=== PATIENT | female | born 1955 | race Caucasian/White ===

== ENCOUNTER → 2017-02-24 | Outpatient (CLI) | payer OTHER ==
[2017-02-24 09:00] LABS: Basophils # (A) 0.1 k/uL (0-0.2); Basophils % (A) 1 %; CH 30.4; CHCM 32.6; Eosinophils # (A) 0.2 k/uL (0-0.7); Eosinophils % (A) 2 %; HCT 45.9 % (34.0-46.0); HDW 2.58; HGB 14.9 gm/dL (11.4-16.0); Luc # (Auto) 0.19; Luc % (Auto) 3; Lymphocytes # (A) 1.9 k/uL (1.0-4.8); Lymphocytes % (A) 25 %; MCH 30.3 pg (25.0-35.0); MCHC 32.5 g/dL (31.0-37.0); MCV 93.5 fL (80.0-100.0); Mean Platelet Volume 7.9; Monocytes # (A) 0.4 k/uL (0-1.0); Monocytes % (A) 6 %; Neutrophils # (A) 5.1 k/uL (1.3-7.7); Neutrophils % (A) 65 %; RBC 4.91 m/uL (3.80-5.40); WBC 7.9 k/uL (3.8-10.6)
[2017-02-24 09:07] LABS: ALT 33 U/L (9-52); AST 29 U/L (14-36); Alkaline Phosphatase 94 U/L (38-126); Anion Gap 11 mmol/L; Blood Urea Nitrogen 21 mg/dL (7-17); Calcium 9.4 mg/dL (8.4-10.2); Carbon Dioxide 28 mmol/L (22-30); Chloride 101 mmol/L (98-107); Cholesterol 223 mg/dL (<200); Glucose 100 mg/dL (74-99); HDL Cholesterol 63 mg/dL (40-60); Non-African American GFR(MDRD) >60 (>60 ml/min/1.73 sqM); Potassium 4.1 mmol/L (3.5-5.1); Sodium 140 mmol/L (137-145); Total Bilirubin 0.6 mg/dL (0.2-1.3)
== END | disposition home or self-care (01) ==
LOC: LABWHC1 08:20
PROVIDERS: ATTEND Nurse Practitioner
DX: Z00.00 Encounter for general adult medical examination without abnormal findings (principal); M81.0 Age-related osteoporosis without current pathological fracture; H81.10 Benign paroxysmal vertigo, unspecified ear; H53.8 Other visual disturbances; Z28.21 Immunization not carried out because of patient refusal; Z13.89 Encounter for screening for other disorder
CPT/HCPCS: 36415; 80053; 80061; 84439; 84443; 85025

== ENCOUNTER → 2017-05-20 | Outpatient (CLI) | payer OTHER ==
--- NOTE | 2017-05-20 11:22 | WWHP ---
[facility] - HISTORY AND PHYSICAL DATE OF SERVICE: 05/20/2017. CHIEF COMPLAINT: The patient is here for her routine gynecologic exam and mammogram. HPI: This is a 62-year-old, G2, P2, with an LMP of 2009. The patient does have occasional hot flashes. These are tolerable. She is otherwise without gynecologic complaints. She denies any postmenopausal bleeding. PAST MEDICAL HISTORY: Chronic back problems and history of osteoporosis. MEDICATIONS: None. ALLERGIES: COMPAZINE, BACTRIM, and SHELLFISH. PAST SURGICAL HISTORY: Colonoscopy in 2006 and 2016. Back surgery 2014. 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 SOCIAL HISTORY: She denies tobacco, alcohol, and drug use. She has been since 1973. The patient does not work outside her home. Her has advanced emphysema and other medical problems. FAMILY HISTORY: Father had some type of cancer but she is uncertain of the type. Brother and mother have hypertension and history of PR. REVIEW OF SYSTEMS: She has lost about 4 pounds over the last year. She denies respiratory, cardiac or GI problems. PHYSICAL EXAM: Blood pressure 128/78, height 5 feet 5 inches, weight 122 pounds, BMI 20, temperature 97.8, pulse 77. This is a well-developed, well-nourished, white female, who is alert and oriented x3, in no acute distress. HEENT is within normal limits. NECK: Supple without mass or thyromegaly. CHEST AND LUNGS: Clear to auscultation. HEART: Regular rate and rhythm. Breasts are without mass or discharge. Axillary exam is negative for adenopathy. Back negative for CVA tenderness. ABDOMEN: Soft, nontender, without palpable masses. PELVIC EXAM: External genitalia reveals mild to moderate atrophy without lesions. Cervix and vagina reveal [id number] atrophy without lesions. There is no evidence of prolapse. The uterus is mid-position, nongravid size and nontender. There are no palpable adnexal masses or tenderness. Rectovaginal exam is negative for mass or tenderness and is negative for occult blood. EXTREMITIES: Nontender. IMPRESSION: 1. A 62-year-old menopausal female with normal gynecologic exam. 2. History of osteoporosis. PLAN: 1. Pap smear was deferred since she had a normal one last year. 2. Self breast examination was discussed. 3. Mammogram will be done today. 4. Osteoporosis management was discussed. I have again recommended taking medication for her weaker bones. The patient states she did not use the medication as recommended by Dr. Luna because of financial reasons. She will be getting a different type of insurance this year and will be looking into using the medication. I have recommended that she follow up with Dr. Luna's office for medical treatment of her osteoporosis since he has done her bone density testing. We have also discussed the importance of adequate calcium, vitamin D and regular exercise. A handout was given to the patient on this. We have also discussed ways of reducing the risk of falling. 5. She will return in 1 year. MMODL / IJN: [id number] /
--- NOTE | 2017-05-22 10:43 | MM ---
Reason for exam: screening (asymptomatic). Last mammogram was performed 1 year ago. History: Patient is postmenopausal. Benign excisional biopsy of the left breast. 2 benign excisional biopsies of the right breast. Physical Findings: A clinical breast exam by your physician is recommended on an annual basis and results should be correlated with mammographic findings. MG Screening Mammo w CAD Bilateral CC and MLO view(s) were taken. Prior study comparison: May 15, 2016, bilateral MG screening mammo w CAD. April 14, 2014, mammogram, performed at [facility]. The breast tissue is heterogeneously dense. This may lower the sensitivity of mammography. Surgical clips in the left breast. No significant changes when compared with prior studies. ASSESSMENT: Benign, BI-RAD 2 RECOMMENDATION: Routine screening mammogram of both breasts in 1 year.
== END | disposition home or self-care (01) ==
LOC: WWCWWP 09:43
PROVIDERS: ATTEND Obstetrics & Gynecology
DX: Z12.31 Encounter for screening mammogram for malignant neoplasm of breast (principal)

== ENCOUNTER → 2017-06-23 | Outpatient (CLI) | payer BC ==
--- NOTE | 2017-06-23 15:49 | XR ---
EXAMINATION TYPE: XR chest 2V DATE OF EXAM: 06/23/2017 COMPARISON: 03/12/2015. HISTORY: COPD. Productive cough for 5 days. TECHNIQUE: Frontal and lateral views of the chest are obtained. FINDINGS: There is no focal air space opacity, pleural effusion, or pneumothorax seen. The cardiac silhouette size is within normal limits. The osseous structures are intact. Pulmonary hyperinflatio n relates to the patient's known underlying COPD. IMPRESSION: No acute cardiopulmonary process. Radiographic sequela of COPD.
== END | disposition home or self-care (01) ==
LOC: RADXRMAIN 15:19
PROVIDERS: ATTEND Family Medicine
DX: J44.9 Chronic obstructive pulmonary disease, unspecified (principal)
CPT/HCPCS: 71046

== ENCOUNTER → 2018-07-07 | Outpatient (CLI) | payer BC ==
--- NOTE | 2018-07-07 10:46 | EST ---
EXERCISE STRESS AGE: 63 SEX: F HT: 5'5" WT: 126 PROTOCOL: Abnormal EKG, chest pain. STAGE: II DURATION OF EXERCISE: 7:00 HEART RATE REST: 101 BLOOD PRESSURE REST: 154/94 MAXIMUM HEART RATE ACHIEVED: 165 MAXIMUM BLOOD PRESSURE: 195/79 85% MPHR: 133 100% MPHR: 157 METS: 8.5 INDICATIONS: Abnormal EKG, chest pain. CLINICAL INFORMATION: Baseline EKG shows sinus rhythm, normal axis, normal intervals. Patient exercised on Mario protocol for a total of 7 minutes achieving 8 METS, 105% predicted maximal heart rate without chest pain. She complained of shortness of breath. At peak exercise there was [address]-segment depression noted. CONCLUSION: 1. Above-average exercise tolerance. 2. Abnormal stress test by EKG criteria.. MMODL / IJN: [id number] /
== END | disposition home or self-care (01) ==
LOC: RADNMMAIN 08:49
PROVIDERS: ATTEND Family Medicine
DX: R94.31 Abnormal electrocardiogram [ECG] [EKG] (principal)
CPT/HCPCS: 93017

== ENCOUNTER → 2019-03-04 | Outpatient (CLI) | payer BC ==
[2019-03-04 11:49] LABS: Chol/HDL Ratio 3.58; LDL Cholesterol,Calculated 136.2 mg/dL (0.0-131.0); VLDL Calculation 15.8 mg/dL (5.00-40.00)
[2019-03-04 11:57] LABS: T4, Free (Free Thyroxine) 1.1 ng/dL (0.80-1.80)
== END | disposition home or self-care (01) ==
LOC: LABWHC1 07:40
PROVIDERS: ATTEND Nurse Practitioner
DX: Z00.00 Encounter for general adult medical examination without abnormal findings (principal); M81.0 Age-related osteoporosis without current pathological fracture; Z68.20 Body mass index [BMI] 20.0-20.9, adult
CPT/HCPCS: 36415; 80061; 82306; 84439; 84443

== ENCOUNTER → 2019-03-09 | Outpatient (CLI) | payer BC ==
--- NOTE | 2019-03-09 16:40 | BD ---
EXAMINATION TYPE: Axial Bone Density DATE OF EXAM: 03/09/2019 COMPARISON: NONE CLINICAL HISTORY: Height: 5 FT 4 IN Weight: FRAX RISK QUESTIONS: RISK FACTORS HISTORY OF: Surgery to Spine/Hip(right/left)/Wrist (right/left): LUMBAR SURG When: 2014 Family History of Osteoporosis: YES Active: YES Postmenopausal woman: AGE 55 Lost more than 2 inches in height since high school: YES MEDICATIONS: Additional Medications: VIT D Additional History: EXAM MEASUREMENTS: Bone mineral densitometry was performed using the [employer] System. Bone mineral density about the R hip (g/cm2): 0.747 Bone mineral density about the L hip (g/cm2): 0.718 T Score values are as follows: -----R Neck: -2.1 -----L Neck: -2.3 -----R Total: -2.2 -----L Total: -2.3 Bone mineral density has: DECREASED -2.6 % since study of: 2012 Bone mineral density about the L Wrist (g/cm2): 0.467 T Score values are as follows: -----Dist. R+U: -4.1 -----Prox. R+U: -3.0 -----Radius total: -3.4 BASELINE FOR WRIST IMPRESSION: Osteoporosis (T Score less than -2.5). There is increased fracture risk and therapy is usually indicated based on age. Re-Screen 1-2 years. NOTE: T-SCORE=SD OF THE YOUNG ADULT MEAN.
--- NOTE | 2019-03-10 14:14 | MM ---
Reason for exam: screening (asymptomatic). Last mammogram was performed 1 year and 10 months ago. History: Patient is postmenopausal. Benign excisional biopsy of the left breast. 2 benign excisional biopsies of the right breast. Physical Findings: A clinical breast exam by your physician is recommended on an annual basis and results should be correlated with mammographic findings. MG 3D Screening Mammo W/Cad Bilateral CC and MLO view(s) were taken. Prior study comparison: May 20, 2017, bilateral MG screening mammo w CAD. May 15, 2016, bilateral MG screening mammo w CAD. The breast tissue is heterogeneously dense. This may lower the sensitivity of mammography. Benign appearing calcifications in the right breast. No suspicious abnormality. Post surgical change on the left. No significant changes when compared with prior studies. ASSESSMENT: Benign, BI-RAD 2 RECOMMENDATION: Routine screening mammogram of both breasts in 1 year.
== END | disposition home or self-care (01) ==
LOC: RADMAMWWP 08:04
PROVIDERS: ATTEND Family Medicine
DX: Z12.31 Encounter for screening mammogram for malignant neoplasm of breast (principal); M81.0 Age-related osteoporosis without current pathological fracture; N95.1 Menopausal and female climacteric states
CPT/HCPCS: 77063; 77067; 77080

== ENCOUNTER → 2019-05-03 | Outpatient (CLI) | payer BC ==
[2019-05-03 12:57] VITALS: BP 151/87; PULSE 83; RESP 18; TEMP 98.5
--- NOTE | 2019-05-03 13:38 | P.HPOB ---
History of Present Illness H&P Date: 05/03/19 Chief Complaint: The patient is here for her routine gynecologic exam. This is a 64-year-old with an LMP of 2009. The patient is without gynecologic complaints and denies any postmenopausal bleeding. Review of Systems The patient's weight has been stable over the last year. She denies respiratory, cardiac, or G.I. problems. Past Medical History Additional Past Medical History / Comment(s): Chronic back problems and osteoporosis. neuropathy, LOWER EXTREMITY RADICULOPATHY,RECURRENT HERNATION L5- S1, DDD. 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 History of Any Multi-Drug Resistant Organisms: None Reported Additional Past Surgical History / Comment(s): back surg. x 2(LAMENECTOMY/DISCETOMY L5-S1), breast biopsies, 03-14-15 REVISON LAMINECTOMY AND DECOMPRESSION OF L5-S1. Colonoscopy 2017. Past Psychological History: No Psychological Hx Reported Smoking Status: Never smoker Past Alcohol Use History: None Reported Past Drug Use History: None Reported Additional History: The patient has been since 1973 and is not sexually active. Her has severe emphysema and is in hospice care. - Past Family History Mother Family Medical History: Hypertension, Myocardial Infarction ([place]) Brother(s) Family Medical History: Hypertension, Myocardial Infarction ([place]) Medications and Allergies Home Medications Medication Instructions Recorded Confirmed Type Gabapentin [Neurontin] 100 mg PO HS 03/07/15 05/03/19 History Allergies Allergy/AdvReac Type Severity Reaction Status Date / Time Iodinated Contrast Media Allergy Rash/Hives Verified 05/03/19 12:51 [Iodinated Contrast Media - IV Dye] prochlorperazine edisylate Allergy stroke Verified 05/03/19 12:51 [From Compazine] like symptoms prochlorperazine maleate Allergy stroke Verified 05/03/19 12:51 [From Compazine] like symptoms shellfish derived [Shellfish] Allergy Rash/Hives Verified 05/03/19 12:51 sulfamethoxazole Allergy Rash/Hives Verified 05/03/19 12:51 [From Bactrim] trimethoprim [From Bactrim] Allergy Rash/Hives Verified 05/03/19 12:51 ciprofloxacin [From Cipro] AdvReac Nausea & Verified 05/03/19 12:51 Vomiting ciprofloxacin HCl AdvReac Nausea & Verified 05/03/19 12:51 [From Cipro] Vomiting diphenhydramine HCl AdvReac Rapid Verified 05/03/19 12:51 [From Benadryl] Heart Rate Exam Vital Signs Temp Pulse Resp BP Pulse Ox 05/03/19 12:53 98.5 F 83 18 151/87 98 Intake and Output 05/02/19 05/03/19 05/03/19 22:59 06:59 14:59 Other: Weight 55.792 kg Height 5 feet 5 inches, weight 123 pounds, BMI 20.5. This is a well-developed well-nourished white female who is alert and oriented times 3 in no acute distress. HEENT: Within normal limits. NECK: Supple without mass or thyromegaly. CHEST AND LUNGS: Clear to auscultation. HEART: Regular rate and rhythm. BREASTS: Are without mass or discharge. AXILLARY EXAM: Negative for adenopathy. BACK: Negative for CVA tenderness. ABDOMEN: Soft, nontender, without palpable masses. PELVIC EXAM: Normal external genitalia with mild to moderate atrophy. Cervix and vagina appear normal with mild atrophy. There is no unusual discharge. There is no evidence of prolapse. The uterus is midposition, nongravid size and nontender. There are no palpable adnexal masses or tenderness. RECTAL EXAM: Rectovaginal exam is negative for mass or tenderness and is negative for occult blood. EXTREMITIES: Nontender. IMPRESSION: 1. 64-year-old menopausal female with normal gynecologic exam. 2. History of osteoporosis 3. Elevated blood pressure. PLAN: 1. Pap smear was performed. 2. Self breast awareness was discussed with the patient. 3. Screening mammogram was done on 03/10/2019 and was benign. 4. Osteoporosis management was discussed. I have stressed the importance of adequate calcium, vitamin D and regular exercise. Recommended amounts of calcium and vitamin D were also discussed. Bone density testing was done on 03/09/2019 and showed osteoporosis. She states her primary care physician, Dr. Luna, is planning on starting her on an injectable medication and she believes it was Prolia. She will be speaking with her office regarding this medication. 5. I recommended that she check her own blood pressures at home and follow-up with Dr. Luna regarding blood pressure elevations. 6. She was advised to return in one year for her annual well woman exam.
--- NOTE | 2019-05-11 14:45 | P.PN ---
Progress Note - Text Progress Note Date: 05/11/19 OUTPATIENT FOLLOW-UP NOTE TEST(S)/RESULTS: Pap smear from 05/03/2019 was negative. METHOD OF NOTIFICATION: The patient was notified by phone. PATIENT COMMENTS: DIAGNOSIS: Negative Pap smear DISCUSSION: PLAN: She was advised to return in one year for her annual well woman exam.
== END | disposition home or self-care (01) ==
LOC: WWCWWP 12:34
PROVIDERS: ATTEND Obstetrics & Gynecology
DX: Z53.9 Procedure and treatment not carried out, unspecified reason (principal)

== ENCOUNTER → 2020-06-13 | Outpatient (CLI) | payer MEDICARE ==
--- NOTE | 2020-06-15 12:22 | MM ---
Reason for exam: screening (asymptomatic). Last mammogram was performed 1 year and 3 months ago. History: Patient is postmenopausal. Benign excisional biopsy of the left breast. 2 benign excisional biopsies of the right breast. Took hormonal contraceptives for 2 years. Physical Findings: A clinical breast exam by your physician is recommended on an annual basis and results should be correlated with mammographic findings. MG 3D Screening Mammo W/Cad Bilateral CC and MLO view(s) were taken. Prior study comparison: March 09, 2019, bilateral MG 3d screening mammo w/cad. May 20, 2017, bilateral MG screening mammo w CAD. The breast tissue is heterogeneously dense. This may lower the sensitivity of mammography. Surgical clips left breast. 1cm nodule central left CC view. Further evaluation recommended. ASSESSMENT: Incomplete: need additional imaging evaluation, BI-RAD 0 RECOMMENDATION: Special view mammogram and ultrasound of the left breast. [facility] will attempt to contact patient to return for supplemental views and ultrasound.
== END | disposition home or self-care (01) ==
LOC: RADMAMWWP 12:47
PROVIDERS: ATTEND Family Medicine
DX: Z12.31 Encounter for screening mammogram for malignant neoplasm of breast (principal)
CPT/HCPCS: 77063; 77067

== ENCOUNTER → 2020-06-26 | Outpatient (CLI) | payer MEDICARE ==
--- NOTE | 2020-06-26 14:14 | MM ---
Reason for exam: additional evaluation requested from abnormal screening. Last mammogram was performed less than 1 month ago. History: Patient is postmenopausal. Benign excisional biopsy of the left breast. 2 benign excisional biopsies of the right breast. Took hormonal contraceptives for 2 years. Physical Findings: Nurse Summary: 1.5cm nodule in the left breast at 12 o'clock (nurse TM). MG 3D Work Up W/Cad LT ML and CCRL view(s) were taken of the left breast. Prior study comparison: June 13, 2020, bilateral MG 3d screening mammo w/cad. March 09, 2019, bilateral MG 3d screening mammo w/cad. The breast tissue is heterogeneously dense. This may lower the sensitivity of mammography. Nodule 1.3cm 12 o'clock 4cm from nipple. These results were verbally communicated with the patient and result sheet given to the patient on 06/26/20. ASSESSMENT: Incomplete: need additional imaging evaluation, BI-RAD 0 RECOMMENDATION: Ultrasound of the left breast. Manage patient on a clinical basis.
--- NOTE | 2020-06-26 14:15 | USB ---
Reason for exam: additional evaluation requested from abnormal screening. History: Patient is postmenopausal. Benign excisional biopsy of the left breast. 2 benign excisional biopsies of the right breast. Took hormonal contraceptives for 2 years. US Breast Workup Limited LT Left limited breast ultrasound including focal area of concern, retroareolar and axilla demonstrates a 13 x 4 x 6mm lobular, mixed lesion at 12 o'clock BB. Probable cyst. These results were verbally communicated with the patient and result sheet given to the patient on 06/26/20. ASSESSMENT: Probably benign, BI-RAD 3 RECOMMENDATION: Ultrasound of the left breast in 6 months.
== END | disposition home or self-care (01) ==
LOC: RADMAMWWP 12:53
PROVIDERS: ATTEND Family Medicine
DX: R92.8 Other abnormal and inconclusive findings on diagnostic imaging of breast (principal)
CPT/HCPCS: 77065; 76642; G0279; 77061

== ENCOUNTER → 2020-12-25 | Outpatient (CLI) | payer MEDICARE ==
--- NOTE | 2020-12-25 08:52 | USB ---
Reason for exam: follow-up at short interval from prior study. History: Patient is postmenopausal. Benign excisional biopsy of the left breast. 2 benign excisional biopsies of the right breast. Took hormonal contraceptives for 2 years. Physical Findings: Nurse did not find any significant physical abnormalities on exam. US Breast Limited LT Left limited breast ultrasound including focal area of concern, retroareolar and axilla demonstrates a 1.2 x 0.4 x 0.6cm lobular, cystic lesion at 12 o'clock BB, similar in appearance. Palpated by nurse. Stable and benign. Likely mammographic correlate. Scanned 12 o'clock targeted. These results were verbally communicated with the patient and result sheet given to the patient on 12/25/20. ASSESSMENT: Probably benign, BI-RAD 3 RECOMMENDATION: Follow-up diagnostic mammogram of both breasts in 6 months. Back on schedule.
== END | disposition home or self-care (01) ==
LOC: RADUSWWP 07:42
PROVIDERS: ATTEND Family Medicine
DX: N60.02 Solitary cyst of left breast (principal); Z78.0 Asymptomatic menopausal state

== ENCOUNTER → 2021-02-05 | Outpatient (CLI) | payer MEDICARE ==
--- NOTE | 2021-02-05 15:31 | CT ---
EXAMINATION TYPE: CT brain wo con DATE OF EXAM: 02/05/2021 COMPARISON: None HISTORY: 66-year-old female S09.90XA headache post head injury TECHNIQUE: Examination was done in axial plane without intravenous contrast. Coronal and sagittal r econstructions performed. CT DLP: 1100 mGycm Automated exposure control for dose reduction was used. FINDINGS: There is no evidence of acute intracranial hemorrhage, acute ischemic changes, mass, mass-effect, or extra-axial fluid collection. There is no effacement of cerebral sulci or basal subarachnoid cister ns. There is no hydrocephalus. There is no midline shift. Coates-white matter distinction is preserv ed. Leftward nasal septal deviation with right-sided yandel bullosa. Paranasal sinuses and mastoid air ce lls well pneumatized. Orbits and globes are intact. No calvarial fracture. IMPRESSION: No acute intracranial abnormality seen.
== END | disposition home or self-care (01) ==
LOC: RADCTMAIN 15:04
PROVIDERS: ATTEND Family Medicine
DX: S09.90XA Unspecified injury of head, initial encounter (principal); G44.309 Post-traumatic headache, unspecified, not intractable
CPT/HCPCS: 70450

== ENCOUNTER → 2021-04-10 | Outpatient (CLI) | payer MEDICARE ==
[2021-04-10 10:43] VITALS: BP 119/81; PULSE 86; RESP 18; TEMP 98.4
--- NOTE | 2021-04-10 11:41 | P.HPOB ---
History of Present Illness H&P Date: 04/10/21 Chief Complaint: The patient is here for her routine gynecologic exam. This is a 66-year-old with an LMP of 2009. The patient is without gynecologic complaints and denies any postmenopausal bleeding. The patient has a history of osteoporosis and used Fosamax for less than one year but this caused bad gastric reflux she used Prolia last year, but this caused jaw pain so she discontinued it. Review of Systems The patient's weight has been stable over the last year. She denies respiratory, cardiac, or G.I. problems. Past Medical History Additional Past Medical History / Comment(s): Chronic back problems and osteoporosis. neuropathy, LOWER EXTREMITY RADICULOPATHY,RECURRENT HERNATION L5- S1, DDD. 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 History of Any Multi-Drug Resistant Organisms: None Reported Additional Past Surgical History / Comment(s): back surg. x 2(LAMENECTOMY/DISCETOMY L5-S1), breast biopsies, 03-14-15 REVISON LAMINECTOMY AN D DECOMPRESSION OF L5-S1. Colonoscopy 2017. Past Psychological History: No Psychological Hx Reported Smoking Status: Never smoker Past Alcohol Use History: None Reported Past Drug Use History: None Reported Additional History: The patient has been a since 2019 and is not sexually active. - Past Family History Mother Family Medical History: Hypertension, Myocardial Infarction ([place]) Brother(s) Family Medical History: Hypertension, Myocardial Infarction ([place]) Medications and Allergies Home Medications Medication Instructions Recorded Confirmed Type Bone Strength 1 tab PO HS 04/10/21 04/10/21 History Allergies Allergy/AdvReac Type Severity Reaction Status Date / Time Iodinated Contrast Media Allergy Rash/Hives Verified 04/10/21 10:37 [Iodinated Contrast Media - IV Dye] prochlorperazine edisylate Allergy stroke Verified 04/10/21 10:37 [From Compazine] like symptoms prochlorperazine maleate Allergy stroke Verified 04/10/21 10:37 [From Compazine] like symptoms shellfish derived [Shellfish] Allergy Rash/Hives Verified 04/10/21 10:37 sulfamethoxazole Allergy Rash/Hives Verified 04/10/21 10:37 [From Bactrim] trimethoprim [From Bactrim] Allergy Rash/Hives Verified 04/10/21 10:37 ciprofloxacin [From Cipro] AdvReac Nausea & Verified 04/10/21 10:37 Vomiting ciprofloxacin HCl AdvReac Nausea & Verified 04/10/21 10:37 [From Cipro] Vomiting diphenhydramine HCl AdvReac Rapid Verified 04/10/21 10:37 [From Benadryl] Heart Rate Exam Vital Signs Temp Pulse Resp BP Pulse Ox 04/10/21 10:38 98.4 F 86 18 119/81 98 Intake and Output 04/09/21 04/10/21 04/10/21 22:59 06:59 14:59 Other: Weight 56.245 kg Height 5 feet 4-1/2 inches, weight 124 pounds, BMI 21.0. This is a well-developed well-nourished white female who is alert and oriented times 3 in no acute distress. HEENT: Within normal limits. NECK: Supple without mass or thyromegaly. CHEST AND LUNGS: Clear to auscultation. HEART: Regular rate and rhythm. BREASTS: Are without mass or discharge. There is slight right central nipple inversion which is unchanged for many years per the patient. AXILLARY EXAM: Negative for adenopathy. BACK: Negative for CVA tenderness. ABDOMEN: Soft, nontender, without palpable masses. PELVIC EXAM: Normal external genitalia with mild atrophy. Cervix and vagina appear normal with mild atrophy. There is no unusual discharge. There is no evidence of prolapse. The uterus is midposition, nongravid size and nontender. There are no palpable adnexal masses or tenderness. RECTAL EXAM: Rectovaginal exam is negative for mass or tenderness and is negative for occult blood. EXTREMITIES: Nontender. IMPRESSION: 1. 66-year-old menopausal female with normal gynecologic exam. 2. History of osteoporosis status post brief use of Fosamax and Prolia, both were discontinued due to side effects. PLAN: 1. Pap smear was performed. If this one is negative, we will plan on discontinuing Pap smears. She has no history of cervical neoplasia. 2. Self breast awareness was discussed with the patient. We have also discussed symptoms associated with inflammatory breast cancer. 3. Diagnostic mammogram will be due in early June 2021. The order slip was given to the patient for this. 4. Osteoporosis management was discussed. I have stressed the importance of adequate calcium, vitamin D and regular exercise. Recommended amounts of calcium and vitamin D were also discussed. Bone density testing is recommended and the order slip was given to the patient for this. We have discussed different options for medical treatment for osteoporosis, such as IV Reclast, calcitonin, and Tymlos injections. She is wary of using medication for the osteoporosis because she had side effects from 2 different types of medications. We'll plan on repeating bone density testing and we will we discussed the options of medications. The order slip was given to the patient for this. 5. She has not received Covid vaccination. She states she has had Covid already. We have discussed that she may benefit from still getting the vaccination and she understands the CDC does recommend being vaccinated even after having had Covid. She will consider this. 6. The patient was advised to return in 1-2 years for her well woman examination.
== END ==
LOC: WWCWWP 10:28
PROVIDERS: ATTEND Obstetrics & Gynecology
DX: Z01.419 Encounter for gynecological examination (general) (routine) without abnormal findings (principal); M81.0 Age-related osteoporosis without current pathological fracture; Z88.1 Allergy status to other antibiotic agents; Z88.2 Allergy status to sulfonamides; Z88.8 Allergy status to other drugs, medicaments and biological substances; Z91.013 Allergy to seafood; Z91.041 Radiographic dye allergy status

== ENCOUNTER → 2021-05-06 | Outpatient (CLI) | payer MEDICARE ==
--- NOTE | 2021-05-07 19:21 | BD ---
EXAMINATION TYPE: Axial Bone Density DATE OF EXAM: 05/06/2021 COMPARISON: 2019 CLINICAL HISTORY: Postmenopausal screening Height: 5 FT 4 IN Weight: 124 FRAX RISK QUESTIONS: Alcohol (3 or more units per day): NO Family History (Parent hip fracture): NO Glucocorticoids (More than 3mos): NO (Ex: prednisone, prednisolone, methylprednisolone, dexamethasone, and hydrocortisone). History of Fracture in Adulthood: NO Secondary Osteoporosis: 1. Type 1 Diabetes: NO 2. Hyperthyroidism: NO 3. Menopause before 45: NO 4. Malnutrition: NO 5. Chronic liver disease: NO Rheumatoid Arthritis: NO Current Tobacco Use: NO RISK FACTORS HISTORY OF: Surgery to Spine/Hip(right/left)/Wrist (right/left): LUMBAR SURG When: 2014 Family History of Osteoporosis: YES Active: YES Diet low in dairy products/other sources of calcium: NO Postmenopausal woman: YES Take estrogen and/or progesterone medications: NO Lost more than 2 inches in height since high school: YES Frequent falls: NO Poor Health: GOOD Hyperparathyroidism: NO Adrenal Insufficiency: NO MEDICATIONS: Additional Medications: NONE Additional History: EXAM MEASUREMENTS: Bone mineral density about the R hip (g/cm2): 0.724 Bone mineral density about the L hip (g/cm2): 0.719 T Score values are as follows: -----R Neck: -2.3 -----L Neck: -2.3 -----R Total: -2.3 -----L Total: -2.2 Bone mineral density has: INCREASED 0.1 % since study of: 2018 Bone mineral density about the L Wrist (g/cm2): 0.469 T Score values are as follows: -----Dist. R+U: -3.9 -----Prox. R+U: -3.2 -----Radius total: -3.4 Bone mineral density has: DECREASED -3.4 % since study of: 2019 IMPRESSION: Osteoporosis (T Score less than -2.5). There is increased fracture risk and therapy is usually indicated based on age. Re-Screen 1-2 years. NOTE: T-SCORE=SD OF THE YOUNG ADULT MEAN.
== END | disposition home or self-care (01) ==
LOC: RADBDWWP 16:21
PROVIDERS: ATTEND Obstetrics & Gynecology
DX: M81.0 Age-related osteoporosis without current pathological fracture (principal); M85.89 Other specified disorders of bone density and structure, multiple sites; Z78.0 Asymptomatic menopausal state
CPT/HCPCS: 77080

== ENCOUNTER → 2021-07-04 | Outpatient (CLI) | payer MEDICARE ==
--- NOTE | 2021-07-05 10:36 | MM ---
Reason for exam: additional evaluation requested from prior study. Last mammogram was performed 1 year ago. History: Patient is postmenopausal. Benign excisional biopsy of the left breast. 2 benign excisional biopsies of the right breast. Took hormonal contraceptives for 2 years. Physical Findings: Nurse did not find any significant physical abnormalities on exam. MG 3D Diag Mammo W/Cad CHANDAN Bilateral CC and MLO view(s) were taken. Prior study comparison: June 26, 2020, left breast MG 3d work up w/cad LT. June 13, 2020, bilateral MG 3d screening mammo w/cad. The breast tissue is heterogeneously dense. This may lower the sensitivity of mammography. Bilateral post surgical change from prior excision. No significant new findings when compared with previous films. These results were verbally communicated with the patient and result sheet given to the patient on 07/04/21. ASSESSMENT: Benign, BI-RAD 2 RECOMMENDATION: Routine screening mammogram of both breasts in 1 year.
== END | disposition home or self-care (01) ==
LOC: RADMAMWWP 14:47
PROVIDERS: ATTEND Obstetrics & Gynecology
DX: R92.8 Other abnormal and inconclusive findings on diagnostic imaging of breast (principal); Z78.0 Asymptomatic menopausal state
CPT/HCPCS: 77066; G0279; 77062

== ENCOUNTER → 2022-09-29 | Outpatient (CLI) | payer MEDICARE ==
--- NOTE | 2022-09-30 15:22 | MM ---
Reason for Exam: Screening (asymptomatic). Last mammogram was performed 1 year(s) and 3 month(s) ago. Patient History: Menarche at age 15. First Full-Term at age 22. Postmenopausal. Patient used Hormonal Contraceptives for 2 years. Benign Excisional Biopsy on the left side. Benign Excisional Biopsy on the right side. Benign Excisional Biopsy on the right side. Risk Values: Viry 5 year model risk: 2.1%. NCI Lifetime model risk: 7.1%. Prior Study Comparison: 06/13/2020 Bilateral Screening Mammogram, [facility]. 06/26/2020 Left Diagnostic Mammogram, [facility]. 07/04/2021 Bilateral Diagnostic Mammogram, [facility]. Tissue Density: The breast tissue is heterogeneously dense. This may lower the sensitivity of mammography. Findings: Analyzed By CAD. Pattern appears symmetrical and stable. Surgical clips are within the left breast. There are scattered punctate calcifications present. No suspicious groups of microcalcifications, spiculated or lobular masses, architectural distortion or other secondary signs of malignancy are mammographically apparent. Overall Assessment: Benign, BI-RAD 2 Management: Screening Mammogram of both breasts in 1 year. A negative mammogram report should not preclude additional follow up of suspicious palpable abnormalities. Patient should continue monthly self breast exam. A clinical breast exam by your physician is recommended on an annual basis and results should be correlated with mammographic findings. Electronically signed and approved by: Taqueria Fajardo D.O. Radiologis
== END | disposition home or self-care (01) ==
LOC: RADMAMWWP 14:28
PROVIDERS: ATTEND Family Medicine
DX: Z12.31 Encounter for screening mammogram for malignant neoplasm of breast (principal); Z78.0 Asymptomatic menopausal state
CPT/HCPCS: 77063; 77067

== ENCOUNTER → 2023-05-12 | Outpatient (CLI) | payer MEDICARE ==
--- NOTE | 2023-05-12 16:09 | US ---
EXAMINATION TYPE: US gallbladder DATE OF EXAM: 05/12/2023 COMPARISON: NONE CLINICAL INDICATION: Female, 68 years old with history of R10.11 RT UPPER QUADRANT PAIN; X 6 months - worse postprandial TECHNIQUE: Multiple sonographic images of the right upper quadrant are obtained. FINDINGS: EXAM MEASUREMENTS: Liver Length: 10.2 cm Gallbladder Wall: 0.1 cm CBD: 0.4 cm Right Kidney: 11.0 x 4.0 x 5.1 cm Pancreas: wnl Liver: wnl Gallbladder: wnl Evidence for sonographic Cisneros's sign: No CBD: Seen normal caliber along its length down into the pancreatic head. Right Kidney: wnl IMPRESSION: No gallstones or biliary ductal dilatation. No specific sonographic abnormality identified in the rig ht upper quadrant
== END | disposition home or self-care (01) ==
LOC: RADUSWWP 10:11
PROVIDERS: ATTEND Family Medicine
DX: R10.11 Right upper quadrant pain (principal)
CPT/HCPCS: 76705

== ENCOUNTER → 2023-05-28 | Outpatient (CLI) | payer MEDICARE ==
--- NOTE | 2023-05-28 23:49 | BD ---
EXAMINATION TYPE: Axial Bone Density DATE OF EXAM: 05/28/2023 CLINICAL HISTORY: 68 years old Female. ICD-10 CODE: M81.0 OSTEOPOROSIS Height: 64.75 Weight: 120.2 FRAX RISK QUESTIONS: Alcohol (3 or more units per day): no Family History (Parent hip fracture): no Glucocorticoids (More than 3mos): no History of Fracture in Adulthood: no Secondary Osteoporosis: 1. Type 1 Diabetes: no 2. Hyperthyroidism: no 3. Menopause before 45: no 4. Malnutrition: no 5. Chronic liver disease: no Rheumatoid Arthritis: no Current Tobacco Use: no RISK FACTORS HISTORY OF: Hip Fracture (Right/Left): no Spine Fracture: no History of Wrist Fracture: no Surgery to Spine/Hip(right/left)/Wrist (right/left): L4-L5 Fusion When: 2014 Family History of Osteoporosis: Sister x2 Active: yes Diet low in dairy products/other sources of calcium: no Postmenopausal woman: yes Take estrogen and/or progesterone medications: no Lost more than 2 inches in height since high school: no Frequent falls: no Poor Health: no Hyperparathyroidism: no Adrenal Insufficiency: no MEDICATIONS: Prednisone or other steroids: no Thyroid Medications:no Osteoporosis Medications: no Additional Medications: Calcium, Vit D Additional History: EXAM MEASUREMENTS: Bone mineral densitometry was performed using the [id number] System. Bone mineral density about the R hip (g/cm2): 0.739 Bone mineral density about the L hip (g/cm2): 0.721 T Score values are as follows: -----R Neck: -1.9 -----L Neck: -2.1 -----R Total: -2.1 -----L Total: -2.3 Z Score values are as follows: -----R Neck: 0.0 -----L Neck: -0.3 -----R Total: -0.5 -----L Total: -0.7 Bone mineral density has: increased 1.0 % since study of: 05/06/2021 Bone mineral density about the L Wrist (g/cm2): 0.431 T Score values are as follows: -----Dist. R+U: -4.5 -----Prox. R+U: -3.4 -----Radius total: -4.0 Z Score values are as follows: -----Dist. R+U: -2.8 -----Prox. R+U: -1.7 -----Radius total: -2.4 Bone mineral density has: decreased -1.7 % since study of: 06/06/2020 FRAX%s: The graph provided illustrates a 10.9% chance for a major osteoporotic fx and a 2.3% chance f or the hips probability for fx in 10 years time. IMPRESSION: Osteoporosis (T Score less than -2.5). There is increased fracture risk and therapy is usually indicated based on age. Re-Screen 1-2 years. NOTE: T-SCORE=SD OF THE YOUNG ADULT MEAN.
== END | disposition home or self-care (01) ==
LOC: RADBDWWP 13:40
PROVIDERS: ATTEND Family Medicine
DX: M81.0 Age-related osteoporosis without current pathological fracture (principal); M85.89 Other specified disorders of bone density and structure, multiple sites; Z78.0 Asymptomatic menopausal state
CPT/HCPCS: 77080

== ENCOUNTER → 2023-10-01 | Outpatient (CLI) | payer MEDICARE ==
--- NOTE | 2023-10-04 15:01 | MM ---
Reason for Exam: Screening (asymptomatic). Last screening mammogram was performed 12 month(s) ago. Patient History: Menarche at age 15. First Full-Term at age 22. Postmenopausal. Patient used Hormonal Contraceptives for 2 years. Benign Excisional Biopsy on the left side. Benign Excisional Biopsy on the right side. Benign Excisional Biopsy on the right side. Risk Values: Viry 5 year model risk: 2.1%. NCI Lifetime model risk: 6.8%. Prior Study Comparison: 06/26/2020 Left Diagnostic Mammogram, [facility]. 07/04/2021 Bilateral Diagnostic Mammogram, [facility]. 09/29/2022 Bilateral MG 3D screening mammo w/cad, [facility]. Tissue Density: The breasts are heterogeneously dense, which may obscure small masses. Findings: Analyzed By CAD. Postsurgical change on the left. Unchanged regional punctate calcifications and asymmetric density on the left. There is no suspicious group of microcalcifications or new suspicious mass in either breast. Overall Assessment: Benign, BI-RAD 2 Management: Screening Mammogram of both breasts in 1 year. . Patient should continue monthly self-breast exams. A clinical breast exam by your physician is recommended on an annual basis. This exam should not preclude additional follow-up of suspicious palpable abnormalities. Note on Viry scores and lifetime risk: 1. A Viry score greater than 3% is considered moderate risk. If this is the case, consider specialist referral to assess eligibility for a risk reducing agent. 2. If overall lifetime risk for the development of breast cancer is 20% or higher, the patient may qualify for future screening with alternating mammogram and breast MRI. Electronically signed and approved by: Consuelo Knutson M.D. Radiologist
== END | disposition home or self-care (01) ==
LOC: RADMAMWWP 08:57
PROVIDERS: ATTEND Family Medicine
DX: Z12.31 Encounter for screening mammogram for malignant neoplasm of breast (principal); Z78.0 Asymptomatic menopausal state
CPT/HCPCS: 77063; 77067